=== PATIENT | female | born 1985 | race Caucasian/White ===

== ENCOUNTER 2017-08-21 16:04 | Emergency (ER) | payer BC, SELFPAY ==
[2017-08-21] MEDS ORDERED: Ketorolac Tromethamine 60 MG/2 ML VIAL ONE (16:38)
--- NOTE | 2017-08-21 18:05 | RAD ---
THREE VIEWS LEFT ANKLE: Comparison: 10-19-12 History: Left ankle injury with pain. FINDINGS: Three views of the left ankle shows mild lateral soft tissue swelling. There is no evidence of acute fracture or dislocation. There is hardware in the medial malleolus and distal fibula from prior fract ure repair. 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 IMPRESSION: Post-surgical changes of the left ankle without acute osseous abnormality. POS: [facility]
== END 2017-08-21 17:21 | disposition home or self-care (01) ==
LOC: ERS 16:04
DX: S93.402A Sprain of unspecified ligament of left ankle, initial encounter (principal); F17.210 Nicotine dependence, cigarettes, uncomplicated; W01.0XXA Fall on same level from slipping, tripping and stumbling without subsequent striking against object, initial encounter
CPT/HCPCS: 29515; 96372; J1885

== ENCOUNTER 2018-03-30 08:50 | Emergency (ER) | payer BC ==
[2018-03-30] MEDS ORDERED: Ketorolac Tromethamine 60 MG/2 ML VIAL ONE (10:15)
== END 2018-03-30 11:00 | disposition home or self-care (01) ==
LOC: ERS 08:50
DX: H66.91 Otitis media, unspecified, right ear (principal); H69.91 Unspecified Eustachian tube disorder, right ear; F17.210 Nicotine dependence, cigarettes, uncomplicated
CPT/HCPCS: 94640; 96372; J1885; J7620

== ENCOUNTER 2019-07-04 22:30 | Emergency (ER) | payer BC | END 2019-07-04 23:57 | disposition home or self-care (01) | LOC: ERS 22:30 | DX: J10.1 Influenza due to other identified influenza virus with other respiratory manifestations (principal); F17.210 Nicotine dependence, cigarettes, uncomplicated | CPT/HCPCS: 87804; 99283 ==

== ENCOUNTER 2020-07-10 17:07 | Emergency (ER) | payer BC | END 2020-07-10 18:01 | disposition home or self-care (01) | LOC: ERS 17:07 | DX: J11.1 Influenza due to unidentified influenza virus with other respiratory manifestations (principal); F17.210 Nicotine dependence, cigarettes, uncomplicated | CPT/HCPCS: 99283 ==

== ENCOUNTER 2023-02-12 15:41 | Emergency (ER) | payer BC, SELFPAY ==
[2023-02-12 16:33] LABS: SARS-CoV-2 NAA Rapid Test Not Detected (NotDetected)
[2023-02-12] MEDS ORDERED: Dexamethasone 4 MG TAB ONE (16:36)
[2023-02-12] MEDS ORDERED: Ibuprofen 800 MG TAB ONE (16:36)
[2023-02-12] MEDS ORDERED: Pseudoephedrine HCl 30 MG TAB PO SCH (17:00)
[2023-02-12] MEDS ORDERED: guaiFENesin ER 600 MG TAB PO SCH (17:00)
[2023-02-12 17:04] LABS: SARS-CoV-2 NAA Rapid Test Not Detected (NotDetected)
== END 2023-02-12 17:30 | disposition home or self-care (01) ==
LOC: ERS 15:41
DX: J10.1 Influenza due to other identified influenza virus with other respiratory manifestations (principal); F17.210 Nicotine dependence, cigarettes, uncomplicated; Z20.822 Contact with and (suspected) exposure to COVID-19
CPT/HCPCS: 87081; 87430; 99283; J8540; U0002

== ENCOUNTER 2023-05-26 15:42 | Emergency (ER) | payer SELFPAY ==
[2023-05-26] MEDS ORDERED: Ketorolac Tromethamine 30 MG (1 mL) VIAL ONE (16:11)
[2023-05-26] MEDS ORDERED: Acetaminophen 500 MG TAB ONE (16:11)
[2023-05-26 17:11] LABS: SARS-CoV-2 NAA Rapid Test Not Detected (NotDetected)
== END 2023-05-26 17:42 | disposition home or self-care (01) ==
LOC: ERS 15:42
DX: B34.9 Viral infection, unspecified (principal); F17.210 Nicotine dependence, cigarettes, uncomplicated
CPT/HCPCS: 71045; 96372; J1885

== ENCOUNTER 2023-11-15 18:08 | Emergency (ER) | payer SELFPAY ==
[2023-11-15] MEDS ORDERED: Bupivacaine 0.25% 10 ML VIAL ONE (20:12)
[2023-11-15] MEDS ORDERED: HYDROcodone/Acetaminophen 5/325 mg Tablet ONE (20:26)
[2023-11-15] MEDS ORDERED: predniSONE 20 MG TAB ONE (21:22)
== END 2023-11-15 21:02 | disposition home or self-care (01) ==
LOC: ERS 18:08
DX: K04.7 Periapical abscess without sinus (principal); K03.81 Cracked tooth; F17.210 Nicotine dependence, cigarettes, uncomplicated
CPT/HCPCS: 64400; J0665; J7512